=== PATIENT | male | born 1955 | race Caucasian/White ===

== ENCOUNTER 2017-04-02 02:05 | Emergency (ER) | payer OTHER ==
[~2017-04-02] VITALS: Ht 185.4 cm; Wt 84.5 kg
[2017-04-02] MEDS ORDERED: dexameTHASONE 20 MG/5 ML VIAL (J1100) IV ONE (02:30)
[2017-04-02] MEDS ORDERED: TRAM50TA2 (02:32)
[2017-04-02] MEDS ORDERED: DIAZ10TA2 (02:32)
[2017-04-02] MEDS: IPRATROPIUM 0.5MG/ALBUTEROL 2.5MG INH SOL UD 3ML (DUONEB)(J7620) NEB SCH ×2 (02:38→02:39)
[2017-04-02] MEDS ORDERED: METAL LOCK LOOP XX ONE ×2 (02:59→03:44)
[2017-04-02] MEDS ORDERED: AZITHROMYCIN 250 MG TAB PO ONE (03:15)
[2017-04-02] MEDS ORDERED: ZITHTAB PO (03:54)
[2017-04-02] MEDS ORDERED: PRED20TA PO (03:54)
[2017-04-02 03:59] VITALS: BP 107/66
--- NOTE | 2017-04-02 06:39 | REP ---
Clinical: Dyspnea. Technique: PA and lateral. Comparison: None. Findings: Chronic changes suggesting COPD noted. Mediastinum and cardiac silhouette are within normal limits. Lateral view cannot exclude a small amount of posterobasilar atelectasis. No effusion. No pneumothorax. Skeletal structures intact. Impression: Findings suggesting COPD and possible small posterior basilar atelectasis. Signed by Cleveland Godinez MD 04/02/2017 06:31 A
== END 2017-04-02 04:14 | disposition home or self-care (01) ==
LOC: M ED 02:05
DX: J20.9 Acute bronchitis, unspecified (principal); J18.9 Pneumonia, unspecified organism
CPT/HCPCS: 71020; 94640; 96374; 99282; J1100

== ENCOUNTER → 2017-04-10 | Outpatient (CLI) | payer OTHER ==
[~2017-04-10] MED LIST: DIAZ10TA2; PRED20TA PO; TRAM50TA2; ZITHTAB PO
[2017-04-10 11:23] LABS: BASO % 0.3 % (0.0-1.0); EOS # 0.1 10^3/uL (0.0-0.50); EOS % 1.9 % (0.0-3.0); IMMATURE GRANULOCYTE % 0.7 % (0-0); LYMPH # 1.4 10^3/uL (1.5-4.5); MEAN CORPUSCULAR HEMOGLOBIN 29.4 pg (27.0-33.0); MEAN CORPUSCULAR HGB CONC 33.6 g/dl (32.0-36.5); MEAN CORPUSCULAR VOLUME 87.5 fl (80.0-96.0); MONO # 0.9 10^3/uL (0.0-0.8); MONO % 12.6 % (0.0-5.0); NEUTROPHILS # 4.9 10^3/uL (1.8-7.7); NEUTROPHILS % 65.5 % (36.0-66.0); PLATELET COUNT, AUTOMATED 264 10^3/uL (150-450); RED CELL DISTRIBUTION WIDTH 14.1 % (11.5-14.5); WHITE BLOOD COUNT 7.5 10^3/uL (4.0-10.0)
[2017-04-10 11:58] LABS: ALBUMIN 3.4 GM/DL (3.2-5.2); ALKALINE PHOSPHATASE 67 U/L (45-117); ALT/SGPT 21 U/L (12-78); ANION GAP 6 MEQ/L (8-16); AST/SGOT 8 U/L (15-37); BILIRUBIN,TOTAL 0.5 MG/DL (0.2-1.0); BLOOD UREA NITROGEN 21 MG/DL (7-18); CALCIUM LEVEL 8.9 MG/DL (8.8-10.2); CARBON DIOXIDE LEVEL 33 MEQ/L (21-32); CHLORIDE LEVEL 102 MEQ/L (98-107); CHOLESTEROL LEVEL 170 MG/DL (<200); CREATININE FOR GFR 1.16 MG/DL (0.70-1.30); GLOMERULAR FILTRATION RATE > 60.0 (>49); GLUCOSE, FASTING 84 MG/DL (80-110); POTASSIUM SERUM 4.3 MEQ/L (3.5-5.1); SODIUM LEVEL 141 MEQ/L (136-145); TOTAL PROTEIN 6.8 GM/DL (6.4-8.2); TRIGLYCERIDES LEVEL 148 MG/DL (<150)
== END ==
LOC: M LAB 10:28
PROVIDERS: ATTEND Emergency Medicine
DX: J45.30 Mild persistent asthma, uncomplicated (principal); R73.01 Impaired fasting glucose